=== PATIENT | male | born 1970 | race Hispanic/Latino ===

== ENCOUNTER 2019-11-23 10:49 | Emergency (ER) | payer BC ==
[~2019-11-23] VITALS: Ht 180.3 cm; Wt 112.5 kg
[2019-11-23] MEDS ORDERED: KETOROLAC TROMETHAMINE 60 MG/2 ML VIAL IM ONE (11:15)
[2019-11-23] MEDS ORDERED: KEFLEX500 MG PO (11:23)
[2019-11-23] MEDS ORDERED: NAPROSYN500 MG PO (11:23)
[2019-11-23] MEDS ORDERED: KETOROLAC TROMETHAMINE 30 MG/ML VIAL ONE (11:23)
[2019-11-23] MEDS ORDERED: TYLENOL WITH C1 EACH PO (11:28)
--- NOTE | 2019-11-23 12:43 | Emergency Department Note ---
History of Present Illnes History of Present Illness Chief Complaint: Extremity Trauma/Pain History of Present Illness This is a 49 year old male . Historian: Patient Arrival Mode: Car Test [employer] Manager Required: No Onset (how long ago): day(s) (2) Radiation: Reports non-radiation Severity: moderate Onset quality: gradual Timing of current episode: constant Progression: unchanged Chronicity: new Context: Denies recent illness (Pt has hx of gout he is right handed denies hx of DM, hx of Fever, chills), Denies trauma/injury Relieving factors: medication Exacerbating factors: movement Associated symptoms: Denies denies other symptoms, Denies confusion, Denies chest pain, Denies cough, Denies diaphoresis, Denies fever/chills, Denies headaches, Denies loss of appetite, Denies malaise, Denies nausea/vomiting, Denies rash, Denies seizure, Denies shortness of breath, Denies syncope, Denies weakness, Denies other Past Medical/Family History Physician Review I have reviewed the patient's past medical and family history. Any updates have been documented here. Past Medical History Recent Fever: No Clinical Suspicion of Infectio: No New/Unexplained Change in Ment: No Other Medical History: Gout Past Surgical History: Appendectomy Social History Smoking Cessation: Never Smoker Counseling Performed: No Any Illegal Drug Use: No Physically hurt or threatened: No Other Any Pre-Existing Lines (PICC,: No Review of Systems Review of Systems Constitutional: Denies chills, Denies fever Musculoskeletal: Reports as per HPI Review of other systems: All other systems negative Physical Exam Related Data Allergies: Coded Allergies: No Known Allergies (Unverified , 01/20/14) Triage Vital Signs Vital Signs Date Time Temp Pulse Resp B/P (MAP) Pulse Ox O2 Delivery O2 Flow Rate FiO2 11/23/19 11:07 99.1 110 18 125/80 96 Room Air Vital signs reviewed: Yes Physical Exam CONSTITUTIONAL Constitutional: Present well-developed HENT HENT: Present normocephalic EYES Eyes: Reports conjunctivae normal NECK Neck: Present supple PULMONARY Pulmonary: Present breath sounds normal CARDIOVASCULAR Cardiovascular: Present tachycardia GASTROINTESTINAL Abdominal: Present soft GENITOURINARY SKIN Skin: Present warm MUSCULOSKELETAL Musculoskeletal: Present other (erythema and warmth over left olecranon, no swelling) NEUROLOGICAL Neurological: Present alert PSYCHOLOGICAL Psychological: Present mood/affect normal Assessment & Plan Medical Decision Making MDM we discussed risks benefits of draining to send sample to definitively say if this was gout, pseudogout vs infection. He would rather treat and follow up closely. Normal ROM of elbow so not c/w elbow joint infection Pt has seen [facility] in past for the bursa and swelling last time 1 month ago but never red, warm or painful, He has a hx of gout so likely that this is the dx but will start on keflex also Assessment & Plan Final Impression: (1) Bursitis, olecranon Depart Disposition: HOME, SELF-CARE Last Vital Signs Date Time Temp Pulse Resp B/P (MAP) Pulse Ox O2 Delivery O2 Flow Rate FiO2 11/23/19 11:07 99.1 110 18 125/80 96 Room Air Home Meds Active Scripts Acetaminophen With Codeine (TYLENOL WITH CODEINE #3 TABLET) 1 Each Tablet, 300 MG PO QID PRN for pain for 4 Days, TAB Prov:HA LABOY MD 11/23/19 Naproxen (NAPROSYN) 500 Mg Tablet, 500 MG PO BID PRN for pain for 7 Days, #15 TAB Prov:HA LABOY MD 11/23/19 Cephalexin Monohydrate (KEFLEX) 500 Mg Capsule, 500 MG PO QID for 7 Days, #28 Prov:HA LABOY MD 11/23/19 HA LABOY MD Nov 23, 2019 11:19
== END 2019-11-23 11:37 | disposition home or self-care (01) ==
LOC: FSED 11:33
DX: M70.22 Olecranon bursitis, left elbow (principal)
CPT/HCPCS: 96372; 99282; J1885 ×2

== ENCOUNTER → 2022-03-11 | Day surgery (SDC) | payer BC ==
[~2022-03-11] MED LIST: ALLOPURINOL300 MG PO; AMLODIPINE BESY10 MG PO; BUPIVACAINE HCL 0.5% INJ 30 ML VIAL INJ ONE; DEXAMETHASONE SOD PHOS INJ 4 MG/ML SDV ONE; FENTANYL CITRATE/PF 100MCG/2 ML INJ ONE; FLUCONAZOL10 MG/1 ML TOP; KEFLEX500 MG PO; KETOROLAC TROMETHAMINE 30 MG/ML VIAL ONE; LABETALOL HCL 5 MG/ML 20ML VIAL ONE; LIDOCAINE 2%/ EPINEPHRINE 20ML MDV ONE; LIDOCAINE HCL 2% LOCAL 20 ML VIAL ONE; LIDOCAINE HCL 2% LOCAL INJ 5 ML SDV VIAL INJ ONE; MEPERIDINE HCL INJ 25 MG/ML VIAL ONE; MIDAZOLAM HCL 2 MG/2 ML VIAL ONE; Morphine 10mg syringe 10 MG/ML INJ ONE; NAPROSYN500 MG PO; OMEGA 3 1,0001 EACH PO; ONDANSETRON HCL INJ 2MG/ML 2ML 2 MG/ML VIAL ONE; POVIDONE IODINE 0.05% 0.05 % ML PO ONE; PROPOFOL IV EMULSION 10 MG/ML 20 ML VIAL ONE; SEVOFLURANE INHAL SOLN 250 ML PEN BTL ONE; TYLENOL WITH C1 EACH PO; VITAMIN D350 MCG PO; [UNRECOGNIZED DRUG - OTHER] PO
[2022-03-11 10:55] VITALS: BP 138/85
== END | disposition home or self-care (01) ==
LOC: OR 05:39
PROVIDERS: ATTEND Orthopaedic Surgery
DX: S83.232A Complex tear of medial meniscus, current injury, left knee, initial encounter (principal); S83.282A Other tear of lateral meniscus, current injury, left knee, initial encounter; M22.42 Chondromalacia patellae, left knee; M67.52 Plica syndrome, left knee; M10.9 Gout, unspecified; X58.XXXA Exposure to other specified factors, initial encounter; Y93.23 Activity, snow (alpine) (downhill) skiing, snowboarding, sledding, tobogganing and snow tubing; Y99.8 Other external cause status; Z88.8 Allergy status to other drugs, medicaments and biological substances; Z01.810 Encounter for preprocedural cardiovascular examination; Z79.899 Other long term (current) drug therapy
CPT/HCPCS: 29882; 93005; J0690; J1100; J1885; J2001 ×3; J2175; J2250; J2270; J2405; J2704; J3010; J3490; C1713